=== PATIENT | female | born 1960 ===

== ENCOUNTER 2021-11-12 23:15 | Emergency (ER) | payer SELFPAY ==
[2021-11-12] MEDS ORDERED: ASPIRIN 325 MG TAB PO ONE (23:22)
--- NOTE | 2021-11-12 23:27 | Emergency Department Report ---
ED Chest Pain HPI - General Stated Complaint: CHEST PAIN PUI?: No Source: patient, RN notes reviewed Mode of arrival: Ambulatory - History of Present Illness Initial Comments: Patient is a 61-year-old -[place] female with no past medical history who presents to the ED with complaint of acute onset persistent substernal chest pain with exertion for the last 8 hours. Patient states that she was at a store walking and doing shopping when she started having substernal chest pain that has been persistent and is worse with ambulation. Patient denies shortness of breath, dizziness, syncope, nausea and vomiting, neck pain, abdominal pain, back pain, headache, numbness and tingling or weakness of upper extremities bilaterally, cough, sore throat, heavy lifting or fall. MD Complaint: chest pain -: Sudden, hour(s) (8) Onset: during exertion Pain Location: substernal Pain Radiation: none Severity: moderate Severity scale (0 -10): 6 Quality: aching, pressure Consistency: intermittent Improves With: rest Worsens With: exertion, movement re: denies: nausea, vomting, diaphoresis, dyspnea, sense of impending doom Other Symptoms: denies: cough, fever, syncope, rash, acid taste in mouth, leg swelling, palpitations, burping, other Treatments Prior to Arrival: none Aspirin use within the Past 7 Days: (0) No - Related Data On Oral Contraceptives: No Allergies Allergy/AdvReac Type Severity Reaction Status Date / Time sulfamethoxazole Allergy Unknown Verified 11/13/21 00:37 [From Bactrim] trimethoprim [From Bactrim] Allergy Unknown Verified 11/13/21 00:37 Heart Score - HEART Score History: Slightly suspicious EKG: Normal Age: 45-65 Risk factors: No known risk factors Troponin: < normal limit HEART Score: 1 - EKG Read Time Time EKG Completed: 23:28 EKG Read Time: 23:30 - Critical Actions Critical Actions: 0-3 pts:0.9-1.7%risk of adverse cardiac event.Candidate for discharge ED Review of Systems ROS: Stated complaint: CHEST PAIN Other details as noted in HPI Constitutional: denies: chills, fever Eyes: denies: eye pain, eye discharge, vision change ENT: denies: ear pain, throat pain Respiratory: denies: cough, shortness of breath, wheezing Cardiovascular: chest pain (Substernal chest pain). denies: palpitations Endocrine: no symptoms reported Gastrointestinal: denies: abdominal pain, nausea, vomiting, diarrhea Genitourinary: denies: urgency, dysuria, discharge Musculoskeletal: denies: back pain, joint swelling, arthralgia Skin: denies: rash, lesions Neurological: denies: headache, weakness, paresthesias Psychiatric: denies: anxiety, depression Hematological/Lymphatic: denies: easy bleeding, easy bruising ED Physical Exam - General General appearance: alert, in no apparent distress - Head Head exam: Present: atraumatic, normocephalic, normal inspection - Eye Eye exam: Present: normal appearance, PERRL, EOMI Pupils: Present: normal accommodation - ENT ENT exam: Present: normal exam, normal orophraynx, mucous membranes moist, TM's normal bilaterally, normal external ear exam - Neck Neck exam: Present: normal inspection, full ROM. Absent: tenderness - Respiratory Respiratory exam: Present: normal lung sounds bilaterally. Absent: respiratory distress, wheezes, rales, rhonchi, chest wall tenderness, accessory muscle use, decreased breath sounds, prolonged expiratory - Cardiovascular Cardiovascular Exam: Present: regular rate, normal rhythm, normal heart sounds. Absent: systolic murmur, diastolic murmur, rubs, gallop - GI/Abdominal GI/Abdominal exam: Present: soft, normal bowel sounds. Absent: tenderness, guarding, rebound, hyperactive bowel sounds, hypoactive bowel sounds, or ganomegaly - Extremities Exam Extremities exam: Present: normal inspection, full ROM, normal capillary refill - Back Exam Back exam: Present: normal inspection, full ROM. Absent: tenderness, CVA tenderness (R), CVA tenderness (L), muscle spasm, paraspinal tenderness - Neurological Exam Neurological exam: Present: alert, oriented X3, CN II-XII intact, normal gait, reflexes normal - Psychiatric Psychiatric exam: Present: normal affect, normal mood, anxious - Skin Skin exam: Present: warm, dry, intact, normal color. Absent: rash ED Course Vital Signs 11/12/21 23:20 Temperature 98.5 F Pulse Rate 82 Respiratory 18 Rate Blood Pressure 132/93 O2 Sat by Pulse 97 Oximetry FIFI score - Fifi Score Age > 65: (0) No Aspirin use within the Past 7 Days: (0) No 3 or more CAD Risk Factors: (0) No 2 or more Angina events in past 24 hrs: (0) No Known CAD with more than 50% Stenosis: (0) No Elevated Cardiac Markers: (0) No ST Deviation Greater than 0.5mm: (0) No FIFI Score: 0 ED Medical Decision Making - Lab Data Result diagrams: 11/12/21 23:32 11/12/21 23:32 - EKG Data EKG shows normal: sinus rhythm Rate: normal - EKG Data Interpretation: normal EKG 11/13/21 06:40 The EKG shows normal sinus rhythm with a ventricular rate of [address] or T wave abnormalities. - Medical Decision Making This is a 61-year-old -[place] female with no past medical history who presents to the ED with complaint of acute onset persistent substernal chest pain with exertion for the last 8 hours. Patient states that she was at a store walking and doing shopping when she started having substernal chest pain that has been persistent and is worse with ambulation. In the ED, patient is alert and oriented x3 and is not in any distress. Patient is hemodynamically stable. EKG shows normal sinus rhythm with a ventricular rate of [address] or T wave abnormalities. Lab test results were reviewed and are all nonactionable including initial troponin levels. Patient's heart score is 1, and patient is PERC negative per Wells criteria. Patient eloped from the ED prior to being taken for chest x-ray did not return even for repeat troponin levels. - Differential Diagnosis ACS; PE; pneumonia; costochondritis; anxiety; dissection; Critical care attestation.: If time is entered above; I have spent that time in minutes in the direct care of this critically ill patient, excluding procedure time. ED Disposition Clinical Impression: Atypical chest pain, Substernal chest pain Disposition: LEFT AWOL/ELOPED Is pt being admited?: No Does the pt Need Aspirin: No Condition: Undetermined Instructions: Nonspecific Chest Pain, Adult Referrals: [facility] [Provider Group] - 3-5 Days Time of Disposition: 01:00 Print Language: [place]AST [place]
[2021-11-12 23:34] VITALS: BP 132/93
[2021-11-12 23:47] LABS: Basophils # (Auto) 0.1 K/mm3 (0.0-0.1); Basophils % (Auto) 0.7 % (0.0-1.8); Eosinophils # (Auto) 0.1 K/mm3 (0.0-0.4); Eosinophils % (Auto) 1.9 % (0.0-4.3); Hematocrit 36.4 % (30.3-42.9); Hemoglobin 12.3 gm/dl (10.1-14.3); Lymphocytes # (Auto) 2.7 K/mm3 (1.2-5.4); Lymphocytes % (Auto) 34.7 % (13.4-35.0); Mean Corpuscular HGB Conc 34 % (30-34); Mean Corpuscular Volume 93 fl (79-97); Monocytes # (Auto) 0.5 K/mm3 (0.0-0.8); Monocytes % (Auto) 6.8 % (0.0-7.3); Platelet Count 307 K/mm3 (140-440); Red Blood Count 3.91 M/mm3 (3.65-5.03); Red Cell Distribution Width 13.6 % (13.2-15.2)
[2021-11-13 00:04] LABS: Alanine Aminotransferase 16 units/L (7-56); Albumin 4.5 g/dL (3.9-5); BUN/Creatinine Ratio 16; Blood Urea Nitrogen 11 mg/dL (7-17); Calcium 8.8 mg/dL (8.4-10.2); Hemolysis Index 4
--- NOTE | 2021-11-14 10:46 | Electrocardiograph Report ---
[facility] Test Date: 2021-11-12 Test Time: 23:28:19 Pat Name: KHUSHBOO PORTILLO Department: Room: Gender: F [employer]: TORRES : 1960 Requested By: MARCO A MONAHAN Order Number: [id number] Reading MD: Dustin Alves Measurements Intervals Bend Rate: 67 P: 53 AL: 140 QRS: 26 QRSD: 91 T: 38 QT: 417 QTc: 442 Interpretive Statements Sinus rhythm No previous ECG available for comparison Electronically Signed On 11-14-2021 10:46:17 EDT by Dustin Alves
== END 2021-11-13 05:00 | disposition left against medical advice (07) ==
LOC: ED 23:15
DX: R07.89 Other chest pain (principal)
CPT/HCPCS: 36415; 80053; 84484; 85025; 93005; 99283